=== PATIENT | female | born 1945 | race Caucasian/White ===

== ENCOUNTER 2019-04-03 19:08 | Emergency (ER) | payer SELFPAY, OTHER ==
[2019-04-03 22:51] LABS: ADD MAN DIFF? NO
[2019-04-03 22:55] LABS: BASOPHIL # 0.1 10^3/ul (0.0-0.1); BASOPHILS % 0.8 % (0.0-2.0); EOSINOPHILS # 0.3 10^3/ul (0.0-0.5); HEMOGLOBIN 14.2 g/dl (12.0-16.0); MEAN CORPUSCULAR HEMOGLOBIN 26.6 pg (29.0-33.0); MEAN CORPUSCULAR HGB CONC 30.9 g/dl (32.0-37.0); MEAN CORPUSCULAR VOLUME 86.1 fl (82.0-101.0); MEAN PLATELET VOLUME 10.1 fl (7.4-10.4); MONOCYTE # 0.4 10^3/ul (0.3-0.9); MONOCYTES % 4.5 % (0.0-11.0); NEUTROPHIL # 3.8 10^3/ul (1.6-7.5); NEUTROPHILS % 44.5 % (39.0-77.0); PLATELET COUNT 282 10^3/UL (140-415); RED BLOOD COUNT 5.34 10^6/ul (4.20-5.40); RED CELL DISTRIBUTION WIDTH 12.7 % (11.5-14.5)
[2019-04-03 22:55] LABS: WHITE BLOOD COUNT 8.6 10^3/ul (4.8-10.8)
[2019-04-03 23:15] LABS: ALANINE AMINOTRANSFERASE 142 IU/L (13-69); ALBUMIN 4.4 g/dl (3.3-4.9); ALBUMIN/GLOBULIN RATIO 1.29; ALKALINE PHOSPHATASE 102 IU/L (42-121); ANION GAP 12 (5-13); ASPARTATE AMINO TRANSFERASE 82 IU/L (15-46); BILIRUBIN,INDIRECT 0.7 mg/dl (0-1.1); BILIRUBIN,TOTAL 0.7 mg/dl (0.2-1.3); BLOOD UREA NITROGEN 18 mg/dl (7-20); CALCIUM 10.1 mg/dl (8.4-10.2); CARBON DIOXIDE 27 mmol/L (21-31); CHLORIDE 104 mmol/L (97-110); GLUCOSE 99 mg/dl (70-220); INR 0.85; PARTIAL THROMBOPLASTIN TIME 25.1 Sec (23.0-35.0); POTASSIUM 4.1 mmol/L (3.5-5.1); PROTIME 11.7 Sec (11.9-14.9); PT RATIO 0.9; SODIUM 143 mmol/L (135-144); TOTAL PROTEIN 7.8 g/dl (6.1-8.1)
[2019-04-03 23:26] LABS: TROPONIN-I < 0.012 ng/ml (0.000-0.120)
[2019-04-03 23:37] LABS: B-TYPE NATRIURETIC PEPTIDE 12 PG/ML (0-125)
[2019-04-04 00:17] LABS: FREE THYROXINE INDEX (Calc) 0.91 ug/ml (0.65-3.89); T3 UPTAKE 33.7 % (23.5-40.5); T4 (THYROXINE) 2.7 ug/dl (5.5-11.0)
[2019-04-04 00:30] LABS: THYROID STIMULATING HORMONE 0.802 MIU/L (0.465-4.680)
[2019-04-04] MEDS: IBUPROFEN 600 MG TAB PO (01:25)
== END 2019-04-04 01:55 | disposition home or self-care (01) ==
LOC: E/R 04-04 01:55
DX: R00.2 Palpitations (principal); I10 Essential (primary) hypertension; R40.2142 Coma scale, eyes open, spontaneous, at arrival to emergency department; R40.2252 Coma scale, best verbal response, oriented, at arrival to emergency department; R40.2362 Coma scale, best motor response, obeys commands, at arrival to emergency department; R07.9 Chest pain, unspecified; Z79.82 Long term (current) use of aspirin
CPT/HCPCS: 36415; 71045; 80053; 83880; 84436; 84443; 84479; 84484; 85025; 85610; 85730; 93005; 99285-25